=== PATIENT | female | born 1995 | race Caucasian/White ===

== ENCOUNTER 2022-09-30 16:28 | Observation (INO) | payer MEDICAID ==
[~2022-09-30] VITALS: Ht 162.6 cm; Wt 125.2 kg
== END 2022-09-30 19:05 | disposition home or self-care (01) ==
LOC: 8 EST LDRP 16:28
PROVIDERS: ADMIT Obstetrics & Gynecology; ATTEND Obstetrics & Gynecology
DX: O42.913 Preterm premature rupture of membranes, unspecified as to length of time between rupture and onset of labor, third trimester (principal); O26.893 Other specified pregnancy related conditions, third trimester; N89.8 Other specified noninflammatory disorders of vagina; O99.891 Other specified diseases and conditions complicating pregnancy; M54.9 Dorsalgia, unspecified; O62.9 Abnormality of forces of labor, unspecified; Z3A.36 36 weeks gestation of pregnancy
CPT/HCPCS: 59025; 76805; 76818; G0378; 99281

== ENCOUNTER 2022-10-02 17:37 | Observation (INO) | payer MEDICAID | END 2022-10-02 20:20 | disposition home or self-care (01) | LOC: 8 EST LDRP 17:37 | PROVIDERS: ADMIT Obstetrics & Gynecology; ATTEND Obstetrics & Gynecology | DX: O36.8130 Decreased fetal movements, third trimester, not applicable or unspecified (principal); Z3A.36 36 weeks gestation of pregnancy | CPT/HCPCS: 59025; 76815; 76818; G0378; 99281 ==

== ENCOUNTER 2025-07-27 17:13 | Emergency (ER) | payer MEDICAID ==
[~2025-07-27] VITALS: Ht 162.6 cm; Wt 110.0 kg
[~2025-07-27 17:13] MED LIST: FERR325T6 PO; IBUP-2030 MT; PNV1TABL76 PO
[2025-07-27 17:19] VITALS: O2SAT 98
[2025-07-27] MEDS: SODIUM CHLORIDE 0.9% 1,000 ML IV ONE (17:44)
[2025-07-27] MEDS: ONDANSETRON HCL 4MG/2ML INJ IV ONE (17:44)
[2025-07-27 17:48] LABS: BASOPHILS % 0.2 % (0.0-2.0); EOSINOPHILS % 0.1 % (0.0-5.0); HEMATOCRIT. 32.1 % (36.0-48.0); HEMOGLOBIN. 10.8 g/dL (12.0-16.0); LYMPHOCYTES % 3.3 % (20.0-50.0); MEAN PLATELET VOLUME 9.2 fl (7.4-10.4); MONOCYTES % 2.9 % (2.0-8.0); NEUTROPHILS % 93.5 % (40.0-76.0); PLATELET 176 x1000/uL (130-400); RED BLOOD CELL COUNT 3.90 mill/uL (4.2-5.4); RED CELL DISTRIBUTION WIDTH 13.7 % (11.6-14.6)
[2025-07-27 18:01] LABS: INR 1.0
[2025-07-27 18:03] LABS: CREATININE 0.6 mg/dL (0.6-1.0); UREA NITROGEN BLOOD 7 mg/dL (9-23)
[2025-07-27 18:04] LABS: ETHANOL BLOOD < 10 mg/dL (<10)
[2025-07-27 18:05] LABS: ASPARTATE AMINOTRANSFERASE 26 IU/L (<34); BILIRUBIN DIRECT 0.1 mg/dL (<=3.0)
[2025-07-27 18:06] LABS: BILIRUBIN TOTAL 0.7 mg/dL (0.1-1.0); PROTEIN TOTAL 6.9 g/dL (6.0-8.3)
[2025-07-27 18:17] LABS: B-HCG QUANTITATIVE 8463 mIU/mL (<6)
[2025-07-27 18:18] LABS: HCG SCREEN POSITIVE
[2025-07-27 19:30] VITALS: BP 122/62; PULSE 100; RESP 22; TEMP 37.2; O2SAT 99
== END 2025-07-27 19:52 | disposition short-term general hospital (02) ==
LOC: ER 17:13
DX: O26.893 Other specified pregnancy related conditions, third trimester (principal); R11.2 Nausea with vomiting, unspecified; R19.7 Diarrhea, unspecified; R10.9 Unspecified abdominal pain; Z3A.31 31 weeks gestation of pregnancy; Z79.899 Other long term (current) drug therapy
CPT/HCPCS: 80076; 80048; 80320; 84703; 84702; 83735; 85025; 85610; 85730; 36415; 76805; 93005; 96361; 96374; 99291; J2405; J7030; Z7610; G0480